=== PATIENT | female | born 1985 | race Caucasian/White ===

== ENCOUNTER → 2016-05-03 | Outpatient (REF) | payer OTHER ==
[~2016-05-03] MED LIST: ACET50TA PO; ASPI1TAB PO; IBUP60TA PO; PRENTAB45 PO
== END ==
LOC: M LAB REF 13:04
PROVIDERS: ATTEND Specialist
DX: Z34.83 Encounter for supervision of other normal pregnancy, third trimester (principal)

== ENCOUNTER 2016-05-17 03:55 | Inpatient (IN) | payer OTHER ==
[~2016-05-17] VITALS: Ht 160 cm; Wt 55.0 kg
[2016-05-17 04:06] VITALS: BP 111/65
[2016-05-17] MEDS ORDERED: LACTATED RINGER'S 1000 ML IV STA (04:39)
[2016-05-17] MEDS ORDERED: PENICILLIN G POTASSIUM IV 5 MU in D5W MINI-BAG PLUS 100 ML IV STA (04:39)
[2016-05-17] MEDS ORDERED: LR 1,000 ML IV SCH (04:39)
[2016-05-17] MEDS ORDERED: PRENTAB9 PO (04:51)
[2016-05-17 05:01] LABS: MEAN CORPUSCULAR HEMOGLOBIN 28.4 pg (27.0-33.0); RED CELL DISTRIBUTION WIDTH 13.5 % (11.5-14.5); WHITE BLOOD COUNT 10.9 K/mm3 (4.0-10.0)
[2016-05-17] MEDS ORDERED: OXYTOCIN 30 UNITS IN 0.9% NaCl 500ML IV BAG (J2590) As Ordered ONE (06:15)
[2016-05-17] MEDS ORDERED: METHYLERGONOVINE MALEATE 0.2 MG/ML VIAL (J2210) As Ordered ONE (06:20)
[2016-05-17 06:28] VITALS: BP 118/71
[2016-05-17] MEDS ORDERED: OXYTOCIN DRIP 30 UNITS in APPROPRIATE DILUENT 1 EA IV SCH (06:38)
[2016-05-17 06:43] VITALS: BP 122/75
[2016-05-17] MEDS ORDERED: MEASLES,MUMPS,RUBELLA VACCINE INJ (MMR-II) (90707) SC SCH (06:45)
[2016-05-17] MEDS ORDERED: METHYLERGONOVINE MALEATE 0.2 MG/ML VIAL (J2210) IM ONE (06:45)
[2016-05-17] MEDS ORDERED: METHYLERGONOVINE MALEATE 0.2 MG TAB PO PRN (06:45)
[2016-05-17] MEDS ORDERED: IBUPROFEN 600 MG TAB PO PRN (06:45)
[2016-05-17] MEDS ORDERED: DOCUSATE SODIUM 100 MG CAP PO PRN (06:45)
[2016-05-17] MEDS ORDERED: ACETAMINOPHEN 500 MG TAB PO PRN (06:45)
[2016-05-17] MEDS ORDERED: DIBUCAINE 1% OINTMENT 30GM TOP PRN (06:45)
[2016-05-17] MEDS ORDERED: RHOGAM 300 MCG (1500 IU) INJ (J2790) IM SCH (06:45)
--- NOTE | 2016-05-17 07:01 | DN ---
DATE: 05/17/2016 Robyn is a 30-year-old, 4, para 2-0-2-2 now, who was admitted to labor and delivery in active labor. She progressed through her labor physiologically. She had spontaneous rupture of membranes and progressed to full dilation at 0606 hours. She pushed to a normal spontaneous vaginal delivery of a live female infant in occiput anterior (OA) position with restitution to left occiput transverse (LOT) position with a left compound hand. There was no nuchal cord. The shoulders delivered with gentle downward guidance and the corpus immediately followed. The was placed on maternal abdomen crying and active. Her mouth and nares were bulb suctioned. The cord was clamped times two and cut by the father of the baby once pulsations ceased. A spontaneous expulsion of an intact placenta with three-vessel cord by Banerjee mechanism was at 0617 hours. Uterine hemostasis achieved with intravenous (IV) Pitocin rapid infusion, Methergine 0.2 mg intramuscular (IM) and uterine fundal massage. Estimated blood loss 400 mL. Perineum and vagina were inspected and noted to be intact. Female, weighed 3010 grams (7 pounds 1 ounce), 9 and 10. Mom is planning to breastfeed her daughter and the family have named her Melanie. At the close of delivery, lap counts and instrument counts were correct and verified.
[2016-05-17 08:32] VITALS: BP 143/68
[2016-05-17] MEDS: PRENATAL VITAMIN TAB PO SCH (09:00)
[2016-05-17] MEDS ORDERED: PENICILLIN G POTASSIUM IV 2.5 MU in D5W 100 ML IV SCH (09:00)
--- NOTE | 2016-05-17 10:50 | HPE ---
DATE OF ADMISSION: 05/17/2016 Robyn is a 30-year-old 4, para 1-0-2-1 at 38-2/7 weeks gestation with an EDC of 05/29/2016 based on first trimester ultrasound. She presents to labor and delivery today with report of onset of uncomfortable contractions at approximately 0200. They have progressively become more uncomfortable and closer together. She does report some positive bloody show. Denies leakage of fluid and her fetus has been active. care was initiated at [facility] in the first trimester. 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 Group B Streptococcus (GBS) positive status. OBSTETRICAL HISTORY: April 2011 she had a spontaneous . May 2012 spontaneous . May 2014 at 38 weeks gestation, she had a spontaneous vaginal delivery for 6 pound 11 ounces male. OB LABS: Blood type is O+, antibody screen negative, rubella immune, VDRL nonreactive. Urine culture no growth. Hep B surface antigen negative, HIV negative. Hep C antibody negative. Gonorrhea and chlamydia negative. Gestational diabetic screening 101. Group B Streptococcus (GBS) is positive. She also traveled out of country and has been tested for Zika virus as well as her and both returned negative results. PAST MEDICAL HISTORY: Childhood varicella. SURGERIES: [place] teeth removal. FAMILY HISTORY: Diabetes. Hypertension. Asthma. SOCIAL HISTORY: The patient is . is at bedside and supportive. She is a nonsmoker. No alcohol use. No drug use. No history of sexually transmitted diseases (STDs) and no history of abuse, physical, sexual, or emotional. ALLERGIES: Known [employer] derived products. No drug allergies. CURRENT MEDICATIONS: Include: - Ventolin inhaler - vitamin SUBJECTIVE: Temperature 99, pulse 77, respirations 18, blood pressure 111/65. She is tense and deep breathing with her contractions. heart rate is 130 with moderate variability, positive excels, no decelerations. She is inocencio approximately every 4 minutes. Sterile vaginal exam per RN 6 cm dilated, 80% effaced, -2 station. Her abdomen is gravid, cephalic presentation. Estimated weight 7 pounds. ASSESSMENT: Intrauterine at 38-2/7 weeks gestation. heart rate category 1 active labor. PLAN: Admit the patient to labor and delivery. Out of bed ad catherine. Start antibiotics for Group B Streptococcus (GBS) prophylaxis. IV fluid bolus in case the patient desires to have an epidural. At this time, she does not request one. I do anticipate continued progress and normal spontaneous vaginal delivery.
[2016-05-17 18:03] VITALS: BP 112/59
[2016-05-18 06:15] VITALS: BP 106/61
[2016-05-18] MEDS: PRENATAL VITAMIN TAB PO SCH (09:14)
[2016-05-18 18:00] VITALS: BP 107/59
[2016-05-19 06:01] VITALS: BP 114/67
[2016-05-19] MEDS: PRENATAL VITAMIN TAB PO SCH (09:22)
== END 2016-05-19 12:10 | disposition home or self-care (01) | DRG 775 ==
LOC: M LDO 03:55 → M LDI 04:10 → M OBS 08:23
PROVIDERS: ADMIT Advanced Practice Midwife; ATTEND Advanced Practice Midwife
PROC: 10E0XZZ Delivery of Products of Conception, External Approach (ICD-10-PCS; principal; 2016-05-17)
DX: O99.824 Streptococcus B carrier state complicating childbirth (principal); Z3A.38 38 weeks gestation of pregnancy; O32.6XX0 Maternal care for compound presentation, not applicable or unspecified; Z37.0 Single live birth

== ENCOUNTER → 2017-10-13 | Outpatient (CLI) | payer OTHER ==
[2017-10-13 14:06] LABS: HEMATOCRIT 42.9 % (36.0-47.0); HEMOGLOBIN 13.7 g/dl (12.0-15.5); MEAN CORPUSCULAR HEMOGLOBIN 26.8 pg (27.0-33.0); MEAN CORPUSCULAR HGB CONC 31.9 g/dl (32.0-36.5); PLATELET COUNT, AUTOMATED 299 10^3/uL (150-450); RED BLOOD COUNT 5.11 10^6/uL (4.00-5.40); RED CELL DISTRIBUTION WIDTH 12.4 % (11.5-14.5); WHITE BLOOD COUNT 6.3 10^3/uL (4.0-10.0)
[2017-10-13 14:30] LABS: THYROID STIMULATING HORMONE 0.572 uIU/ML (0.358-3.740)
[2017-10-15 14:54] LABS: HPV HYBRID CAPTURE II Negative (Negative)
== END ==
LOC: M SMT 08:54
DX: N93.9 Abnormal uterine and vaginal bleeding, unspecified (principal); Z12.4 Encounter for screening for malignant neoplasm of cervix

== ENCOUNTER → 2017-10-16 | Outpatient (CLI) | payer OTHER | LOC: M RAD 09:33 | DX: N93.9 Abnormal uterine and vaginal bleeding, unspecified (principal) | CPT/HCPCS: 76856 ==